=== PATIENT | female | born 1965 | race Caucasian/White ===

== ENCOUNTER 2018-01-02 12:44 | Emergency (ER) | payer OTHER ==
[~2018-01-02] VITALS: Ht 165.1 cm; Wt 78.2 kg
[2018-01-02 14:44] VITALS: BP 108/89
[2018-01-02] MEDS ORDERED: VALIUM5 MG PO (15:18)
[2018-01-02] MEDS ORDERED: LIDODERM 5% P1 PATCH TD (15:18)
[2018-01-02] MEDS ORDERED: MOTRIN800 MG PO (15:18)
[2018-01-02] MEDS ORDERED: PREDNISONE20 MG PO (15:18)
== END 2018-01-02 16:09 | disposition home or self-care (01) ==
LOC: EME 12:44
DX: M54.41 Lumbago with sciatica, right side (principal); M47.9 Spondylosis, unspecified; Z87.891 Personal history of nicotine dependence; Z88.0 Allergy status to penicillin
CPT/HCPCS: 72100; 99281; 99284; J1885; J2060; J7512